=== PATIENT | female | born 1970 | race Two or more races ===

== ENCOUNTER 2024-10-14 11:43 | Outpatient (CLI) | payer OTHER | END 2024-10-14 11:58 | disposition home or self-care (01) | LOC: RAD 11:43 | DX: M21.764 Unequal limb length (acquired), left fibula (principal) ==

== ENCOUNTER 2025-07-25 11:18 | Emergency (ER) | payer OTHER ==
[~2025-07-25] VITALS: Ht 149.9 cm; Wt 60.8 kg
[2025-07-25] MEDS ORDERED: SYMBICORT 16010.2 GM (11:28)
[2025-07-25] MEDS ORDERED: NEURONTIN300 MG PO (11:28)
[2025-07-25 14:34] LABS: BASO % 0.7 % (0.1-1.2); EOS # 0.09 (0.04-0.54); EOS % 1.3 % (0.7-7.0); LYMPH # 2.69 (1.18-3.74); LYMPH % 39.9 % (19.3-53.1); MEAN PLATELET VOLUME 8.70 fl (9.4-12.4); MONO # 0.64 (0.24-0.82); MONO % 9.5 % (4.7-12.5); NEUT # 3.23 (1.56-6.13); NEUT % 48.0 % (34.0-71.1); RED CELL DISTRIBUTION WIDTH 13.5 % (11.6-14.4)
[2025-07-25 14:54] LABS: ALT/SGPT 32.0 U/L (12-78); AST/SGOT 20.0 U/L (15-37); BILIRUBIN TOTAL 0.5 mg/dL (0.3-1.2); BUN CREA RATIO 21.0 (7.0-25.0); CREATININE SERUM 0.62 mg/dL (0.55-1.02); GFR 99.93; GLOBULINA 3.4 G/DL (2.4-3.5); GLUCOSE FASTING 101.0 mg/dL (65-100); OSMOLALITY SERUM 283.0 MOSM/KG (275-295)
[2025-07-25] MEDS ORDERED: HYDROXYZINE HCL25 MG PO (16:04)
== END 2025-07-25 16:25 | disposition home or self-care (01) ==
LOC: ER 11:18
PROVIDERS: Preventive Medicine Public Health & General Preventive Medicine
DX: F41.9 Anxiety disorder, unspecified (principal); Z88.8 Allergy status to other drugs, medicaments and biological substances